=== PATIENT | female | born 1975 | race Caucasian/White ===

== ENCOUNTER 2025-05-14 13:57 | Outpatient (AMB) | payer MEDICARE, SELFPAY ==
--- OUTSIDE RECORDS SUMMARY | 2025-05-14 14:06 | XMS_ITS | Continuity of Care Document ---
Author Organization [facility] Address [address] [place] [address] [address] [place], [place] Phone [phone] Care Team Providers Care Field Assembly Supervisor Name Role Phone ABHINAV LATHAM M.D. Care Team Information Rec eiver Unavailable Social History Type Date Description Comments Sex Female Sex Unknown
[2025-05-14 14:22] VITALS: BMI 36.4
--- NOTE | 2025-05-14 14:22 | HO.SPINEOV ---
Vital Signs 05/14/25 14:22 Height 4 ft 11 in Weight 180 lb BMI 36.4 Intake Visit Reasons: chronic back pain Intake Note: Ms. Stubbs is here today c/o Chronic back pain that radiate to the hips and legs causing her legs to be weak. Rn Case Manager Hospice Required: No Physical Exam Vital Signs: BMI result Body Mass Index 36.4 Assessment & Plan Assessment & Plan (1) Back pain: Code(s): M54.9 - Dorsalgia, unspecified Category: Medical Plan Dear Maryann, Thank you for referring Ms Stubbs to our office today. This is a very nice 50-year-old female presents to the office today for evaluation of back pain, bilateral hip pain running down her legs. 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 That was about 2 months ago. She had pain after those events and it seems like it started around that time. She ultimately had a few different interactions with providers including someone at [facility] named dev Neil. I think they were considering starting physical therapy but because she was in his so much pain it was recommended that she did not start at that time. She will take muscle relaxers as needed. She takes Tylenol and gabapentin as well. There is an evaluation that was done by Dr. Whitney as well, thought might be the SI joint. She was given an SI joint belt but it was not much use. She comes in today with an MRI done at [facility] showing degenerative disc disease at L4-5. PMH: Asthma, hypertension, GERD, carpal tunnel surgery, and has some kind of personal feminine surgery she reports Social hx: No smoking, alcohol or drug use reported Medications: Trazodone, acetaminophen, Benadryl, multivitamin, cyclobenzaprine, Excedrin, gabapentin, Inderal and omeprazole Allergies: Please see the list. 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 She has pain with movement of her legs but is able to demonstrate movement of all major muscle groups. Reflexes normal. Gait normal. Imaging review: Lumbar MRI done at [facility] shows just mild disc degeneration at L4-5, the radiology report severe facet arthropathy but I do not appreciate severe levels. There is some slight hyperintensity. There is no evidence of nerve impingement. Impression: 50-year-old female with 2 months of back pain, unclear exactly how it started, might have been related to getting hit in the back by a goat twice, or starting during physical therapy for her ankles when she was doing activities. Either way, at this point she has had no dedicated conservative treatment specifically for her back. She does have some mild disc degeneration, but in general we do not treat that is surgically unless the patient has some kind of severe disc collapse, Modic endplate changes, spondylolisthesis etc which this patient does not have. Also we typically reserve surgery for patients who have has spent many months or years failing conservative treatment. Her disc degeneration is so mild, I do not think it has anything to do with her back pain. There is reports of facet arthropathy and although she does have this it is not severe. This maybe part of her back pain, but again this kind of facet issue usually develops over a course of many months to years not during 1 episodic event. Most likely this is coming from a muscular source. It has only been present for a few months so it is very likely it will go away on its own. I have recommended she follow up with [facility] again and continue on the nonoperative track. She has no restrictions and can be activity as tolerated. Thank you for allowing us to care for your patient. The total time spent with this visit with this patient was 45 minutes reviewing history, physical exam, lumbar imaging review, and implementation of treatment plan or further diagnostic testing Jeremi Thomas MD,PhD [facility] Coding Level of Care Code New Pt Level 4 (06671) Diagnoses Back pain M54.9
== END 2025-05-14 15:19 | disposition home or self-care (01) ==
LOC: HO.HNS 13:58
PROVIDERS: Visit Provider Physician Assistant
DX: M54.9 Dorsalgia, unspecified (principal)
CPT/HCPCS: 99204

== ENCOUNTER → 2025-05-14 13:57 | Outpatient (BNVA) | payer MEDICARE, SELFPAY | PROVIDERS: Visit Provider Physician Assistant | DX: M54.9 Dorsalgia, unspecified (principal); G89.29 Other chronic pain | CPT/HCPCS: 99202 ==